=== PATIENT | female | born 1955 | race Caucasian/White ===

== ENCOUNTER 2017-11-02 19:18 | Inpatient (IN) | payer BC, OTHER ==
[~2017-11-02] VITALS: Ht 142.2 cm; Wt 81.6 kg
[~2017-11-02 19:18] MED LIST: ASPIR 8181 MG PO; ATENOLOL50 MG PO; LEVEMIR100 UNIT/1 SC; LEVOFLOXACIN500 MG PO; LIPITOR10 MG PO; LISINOPRIL10 MG PO; METFORMIN HCL500 M1 PO; NOVOLOG100 UNITS1 SC; PLAVIX75 MG PO; PREDNISONE20 MG PO; VENTOLIN HFA18 GM PO
--- OUTSIDE RECORDS SUMMARY | 2017-11-02 19:20 | XMS REPORT ---
Author Author [facility] Address Unknown Phone Unavailable Care Team Providers Care Appraiser Name Role Phone Unavailable Unavailable Problems This patient has no known problems. Allergies, Adverse Reactions, Alerts This patient has no known allergies or adverse reactions. Medications This patient has no known medications. Encounters Start Date/Time End Date/Time Encounter Type Admission Type Attending [facility] Facility Care Department Encounter ID 2017-02-18 00:00:00 2017-02-18 00:00:00 Outpatient [facility] [id number] 2017-01-26 00:00:00 2017-01-26 00:00:00 Outpatient [facility] [id number] 2017-01-14 00:00:00 2017-01-14 00:00:00 Outpatient [facility] [id number] 2017-01-01 00:00:00 2017-01-01 00:00:00 Outpatient [facility] [id number] 2016-12-24 00:00:00 2016-12-24 00:00:00 Outpatient [facility] [id number] 2016-12-15 00:00:00 2016-12-15 00:00:00 Outpatient [facility] [id number] 2016-12-05 15:07:46 2016-12-05 15:07:46 Outpatient [facility] [id number] 2016-10-29 14:44:37 2016-10-29 14:44:37 Outpatient [facility] [id number] 2016-10-28 10:08:32 2016-10-28 10:08:32 Outpatient [facility] [id number]
[2017-11-02] MEDS ORDERED: HYDRALAZINE HCL 20 MG/ML VIAL IV STA (19:27)
[2017-11-02] MEDS ORDERED: ASPIRIN 81 MG CHEW TAB PO ONE ×2 (19:30→21:00)
[2017-11-02] MEDS ORDERED: CLONIDINE HCL 0.1 MG TAB PO ONE (20:00)
[2017-11-02 20:23] LABS: CLARITY,URINE SL CLOUDY (CLEAR); COLOR,URINE YELLOW (YELLOW); LEUKOCYTE ESTERASE ,URINE NEGATIVE (NEGATIVE); NITRITE,URINE NEGATIVE (NEGATIVE); PROTEIN,URINE DIPSTICK 2+ (NEGATIVE)
[2017-11-02 20:24] LABS: BACTERIA,URINE MANY /HPF; BILIRUBIN,URINE NEGATIVE (NEGATIVE); EPITHELIAL CELLS,URINE MANY /LPF; INR 1.11; KETONES,URINE NEGATIVE (NEGATIVE); PARTIAL THROMBOPLASTIN TIME 29.7 seconds (23.8-35.5); PROTHROMBIN TIME 13.5 seconds (11.9-14.5); URINE UROBILINOGEN 1 mg/dL (0.2 - 1)
[2017-11-02 20:25] LABS: HEMATOCRIT 36.7 % (34.2-44.1); HEMOGLOBIN 11.4 g/dL (12.0-16.0); MEAN CORPUSCULAR HEMOGLOBIN 28.1 pg (28-32); MEAN CORPUSCULAR HGB CONC 31.1 g/dL (31-35); MEAN CORPUSCULAR VOLUME 90.6 fL (81-99); RED BLOOD COUNT 4.05 x10e6/uL (3.6-5.1); RED CELL DISTRIBUTION WIDTH 13.5 % (11.7-14.4)
[2017-11-02 20:26] LABS: BASOPHILS # (AUTO) 0.4 (0.0-0.1); EOSINOPHILS # (AUTO) 3.6 (0.0-0.4); EOSINOPHILS % 0.4 % (0.0-6.0); LYMPHOCYTES # (AUTO) 20.5 (1.0-3.2); LYMPHOCYTES % 2.3 % (18.0-39.1); MONOCYTES % 0.8 % (4.4-11.3); NEUTROPHILS % 7.7 % (38.7-80.0); PLATELET COUNT 290 x10e3/uL (140-360)
[2017-11-02 20:28] LABS: ANION GAP 11.6 mmol/L (8-16); CALCIUM 8.8 mg/dL (8.4-10.2); CREATININE, SERUM 1.22 mg/dL (0.57-1.11); POTASSIUM 4.6 mmol/L (3.5-5.1)
[2017-11-02 20:29] LABS: ALBUMIN 3.2 g/dL (3.5-5.0); ALBUMIN/GLOBULIN RATIO 0.7 (0.8-2.0); CREATINE KINASE MB 4.6 ng/mL (0-5.0); MAGNESIUM 1.8 MG/DL (1.3-2.1)
--- NOTE | 2017-11-02 20:38 | Diagnostic Imaging Report ---
A single frontal view of the chest. HISTORY: Chest pain, shortness of breath COMPARISON: None available. DISCUSSION: Portable technique, limits sensitivity of the exam. Soft tissue attenuation partially limits sensitivity of the exam. Overlying monitoring leads. Tubes/Lines: None Lungs and pleura: Low lung volumes result in bibasilar vascular crowding, accentuation of the pulmonary interstitial markings, central pulmonary vasculature, and the cardiac silhouette. Allowing for these limitations, the findings are as follows: Diffusely increased interstitial opacities with more confluent opacities at the lung bases. Small pleural effusions with adjacent atelectasis. Heart and mediastinum: The cardiac silhouette and central pulmonary vasculature appears prominent. Bones: No acute osseous lesion is identified, given this limited exam. IMPRESSION: Correlate for volume overload, findings compatible with mild cardiomegaly, central pulmonary vascular congestion, interstitial edema, small bilateral pleural effusions with adjacent atelectasis. Signed by: Dr. Fawad Ruiz D.O., M.M.M. on 11/02/2017 8:34 PM
[2017-11-02] MEDS ORDERED: SODIUM CHLORIDE FLUSH 10 ML SYR INJ PRN (21:00)
[2017-11-02] MEDS ORDERED: FUROSEMIDE INJ 10 MG/ML 4 ML VIAL IV ONE (21:00)
[2017-11-02] MEDS: FUROSEMIDE INJ 10 MG/ML 4 ML VIAL IV SCH (21:22)
[2017-11-03] MEDS ORDERED: NITROGLYCERIN 2% OINT 1 GM PKT TOP SCH
[2017-11-03] MEDS ORDERED: METOPROLOL TARTRATE INJ 1 MG/ML VIAL IV ONE (02:30)
[2017-11-03 05:21] LABS: BASOPHILS # (AUTO) 0.1 (0.0-0.1); BASOPHILS % 0.5 % (0.0-1.0); EOSINOPHILS # (AUTO) 0.3 (0.0-0.4); EOSINOPHILS % 3.5 % (0.0-6.0); HEMATOCRIT 32.5 % (34.2-44.1); LYMPHOCYTES # (AUTO) 2.3 (1.0-3.2); LYMPHOCYTES % 23.5 % (18.0-39.1); MEAN CORPUSCULAR HEMOGLOBIN 27.5 pg (28-32); MEAN CORPUSCULAR HGB CONC 30.8 g/dL (31-35); MEAN CORPUSCULAR VOLUME 89.5 fL (81-99); MONOCYTES # (AUTO) 0.8 (0.2-0.8); MONOCYTES % 7.7 % (4.4-11.3); NEUTROPHILS # (AUTO) 6.3 (2.1-6.9); NEUTROPHILS % 64.5 % (38.7-80.0); PLATELET COUNT 258 x10e3/uL (140-360); RED BLOOD COUNT 3.63 x10e6/uL (3.6-5.1); RED CELL DISTRIBUTION WIDTH 13.6 % (11.7-14.4)
[2017-11-03 05:42] LABS: ALBUMIN 2.7 g/dL (3.5-5.0); ALBUMIN/GLOBULIN RATIO 0.8 (0.8-2.0); ANION GAP 12.2 mmol/L (8-16); CALCIUM 8.5 mg/dL (8.4-10.2); CREATININE, SERUM 1.17 mg/dL (0.57-1.11); POTASSIUM 4.2 mmol/L (3.5-5.1)
[2017-11-03 05:59] LABS: CREATINE KINASE MB 2.6 ng/mL (0-5.0)
[2017-11-03] MEDS ORDERED: DEXTROSE 50% SYRINGE 50 ML IV PRN (07:30)
[2017-11-03] MEDS ORDERED: INSULIN LISPRO 100 UNIT/1 ML 3ML VIAL SQ SCH (07:30)
[2017-11-03] MEDS: ASPIRIN 81 MG ENTERIC COATED PO SCH (08:55)
[2017-11-03] MEDS: FUROSEMIDE INJ 10 MG/ML 4 ML VIAL IV SCH ×2 (08:55→20:55)
[2017-11-03] MEDS: INSULIN REGULAR, HUMAN 100 UNIT/1 ML 3ML VIAL SQ SCH ×2 (12:33→21:00)
[2017-11-03 13:11] LABS: CREATINE KINASE MB 2.2 ng/mL (0-5.0)
[2017-11-03] MEDS ORDERED: CARVEDILOL 12.5 MG TAB PO SCH (17:00)
--- NOTE | 2017-11-03 17:21 | Consultation ---
DATE OF CONSULTATION: November 03, 2017 CARDIOLOGY CONSULTATION REQUESTING PHYSICIAN: Dr. Mosley REASON FOR CONSULTATION: Chest pain and hypertensive urgency. HISTORY OF PRESENT ILLNESS: This is a 62-year-old woman with a history of coronary artery disease, status post LAD PCI 3 years ago, diabetes mellitus and hypertension, who presents with complaints of shortness of breath and chest pain. The patient reports she has been out of her blood pressure medication for the last couple of weeks. One week prior to admission, she noted her blood pressure has been running high. Additionally, she reports she has been having shortness of breath for the last 2 weeks as well as lower extremity edema and orthopnea. She denied any PND, lightheadedness, syncope or palpitations. The night prior to admission she endorsed sharp chest pain, 5/10 in severity. There was no radiation. It was only intermittently present. REVIEW OF SYSTEMS: Negative, except as per HPI. PAST MEDICAL HISTORY 1. Coronary artery disease, status post LAD PCI in 2014. 2. Diabetes mellitus. 3. Hypertension. PAST SURGICAL HISTORY: Tonsillectomy. ALLERGIES: PENICILLIN. MEDICATIONS: Please see medication list. SOCIAL HISTORY: Denies tobacco, alcohol, or illicit drugs. FAMILY HISTORY: Noncontributory. PHYSICAL EXAMINATION VITAL SIGNS: Temperature 99.5 degrees, pulse 77, respiratory rate 18, blood pressure 145/75, oxygen saturation 99%. GENERAL: Obese woman in no acute distress. HEENT: Normocephalic and atraumatic. Pupils are equal. No scleral icterus. NECK: Supple. No thyromegaly or cervical lymphadenopathy. No carotid bruit. LUNGS: Crackles in bilateral bases. Otherwise, clear to auscultation. CARDIOVASCULAR: Normal rate, regular rhythm. No murmur. Normal S1 and S2. ABDOMEN: Soft. Nontender. EXTREMITIES: There is 1+ pitting edema bilaterally. NEURO: Nonfocal exam. LABS: WBC 9.8, hemoglobin 10, hematocrit 32.5, platelets 258. Sodium 143, potassium 4.2, chloride 108, CO2 27, BUN 26, creatinine 1.17. Troponin initial 0.502. BNP 794. UA shows 2+ protein, 2+ glucose, 2+ blood, 11-20 RBCs, 6-10 WBCs, many bacteria. Chest x-ray: Correlate for volume overload. Findings compatible with mild cardiomegaly, central pulmonary vascular congestion, interstitial edema, small bilateral pleural effusions with atelectasis. EKG: Sinus tachycardia. ST and T wave abnormalities. Consider inferolateral ischemia. IMPRESSION 1. Lxzlo-vy-ionenyu diastolic heart failure. 2. Hypertensive emergency. 3. Elevated troponin. 4. Coronary artery disease with prior left anterior descending percutaneous coronary intervention in 2014. 5. Diabetes mellitus. 6. Hypertension. RECOMMENDATIONS 1. Cardiac enzymes are downtrending. Cardiac biomarkers are not consistent with uam-GV-nrkuzvqzz myocardial infarction, most likely related to demand ischemia in the setting of xblue-xu-skwydlv diastolic heart failure versus hypertensive emergency. 2. Continue diuretics. Blood pressure has improved. Will start the patient on carvedilol for blood pressure control. Given known CAD and elevated troponin, the patient needs ischemic evaluation. Plan to schedule for cardiac catheterization tomorrow morning, n.p.o. after midnight except for medications. Thank you for this consult. We will continue to follow. Job#: [id number]
[2017-11-03 17:33] VITALS: BP 205/95
[2017-11-03 17:46] VITALS: BP 205/95
[2017-11-03 17:53] VITALS: BP 205/95
[2017-11-03 18:18] VITALS: BP 140/64
[2017-11-03 18:19] VITALS: BP 140/64
[2017-11-03] MEDS: LEVOFLOXACIN 500MG/D5W 100ML 100 ML IV SCH (18:30)
[2017-11-03] MEDS ORDERED: SODIUM CHLORIDE 0.9% 250ML 250 ML ONE (18:35)
[2017-11-03 18:53] LABS: CHOL/HDL RATIO 5.1 (3.0-3.6)
[2017-11-03 20:00] VITALS: BP 178/78
[2017-11-03] MEDS: ATORVASTATIN 20 MG TAB PO SCH (20:55)
[2017-11-03] MEDS ORDERED: PRAVASTATIN 20 MG TAB PO SCH (21:00)
[2017-11-03] MEDS: HEPARIN SOD (PORCINE) 5,000 UNIT/ML VIAL SC SCH (21:00)
--- NOTE | 2017-11-03 23:32 | History and Physical ---
PRIMARY CARE PHYSICIAN: None. CHIEF COMPLAINT: Shortness of breath and chest discomfort. HISTORY OF PRESENT ILLNESS: This is a 62-year-old woman with a history of coronary artery disease, status post stents in 2014, and history of asthma, now developing shortness of breath about 2 weeks ago, started using inhaler, but then developed leg swelling. Symptoms worsened overtime, increasing to the point where she was having increased shortness of breath and leg swelling. She also had associated cough and came to the hospital for further evaluation and management. PAST MEDICAL HISTORY: Coronary artery disease, status post stent in 2015, asthma, hypertension, diabetes mellitus type 2. PAST SURGICAL HISTORY: Tonsillectomy and coronary stent placement. ALLERGIES: PER ELECTRONIC MEDICAL RECORD. FAMILY AND SOCIAL HISTORY: Patient is . She has no children. No alcohol, illicit or cigarettes. MEDICATIONS: Per electronic medical record. REVIEW OF SYSTEMS: Denies any dizziness, fever, chills or sweats. PHYSICAL EXAMINATION: VITAL SIGNS: Have been reviewed. Blood pressure is as high as 247/116. GENERAL: A tired-appearing woman, resting in bed. HEENT: Anicteric. Pupils responsive to light. No oral lesions. CARDIOVASCULAR: Normal S1 and S2. LUNGS: Moderate breath sounds, reduced at the bases. ABDOMEN: Soft, nontender, nondistended. EXTREMITIES: 2+ leg edema bilaterally. SKIN: Dry. PSYCHIATRIC: Normal affect. LABS: Reviewed. MEDICATIONS: Reviewed. ASSESSMENT: A 62-year-old woman. 1. Abnormal electrocardiogram. 2. Pericardial effusion. 3. Elevated troponin. 4. Hypertension. 5. Coronary artery disease with history of stents. 6. Hypertensive emergency with leg edema and shortness of breath. 7. Acute kidney injury. 8. Morbid obesity. Body mass index is 40.4. 9. Acute exacerbation of congestive heart failure, possibly diastolic. 10. Urinary tract infection. 11. Pleural effusion, bilateral. 12. Diabetes mellitus type 2. PLAN: 1. Heart catheterization planned for tomorrow. 2. Continue aggressive diuresis, 40 IV of Lasix q.12. 3. Continue beta marianne with carvedilol and add aspirin. I will discontinue atenolol while patient is on carvedilol. 4. We will treat the urinary tract infection with IV Levaquin as patient is allergic to penicillin and follow up urine cultures. 5. We will hold Plavix in anticipation of heart catheterization tomorrow. 6. Use Dilaudid, aspirin and statin. 7. Obtain lipid panel and hemoglobin A1c. 8. We will start pravastatin 20 mg at bedtime. May need to titrate up after we get the results. 9. N.p.o. after midnight in anticipation for heart catheterization. 10. Use heparin and Pepcid for prophylaxis. DISPOSITION: Follow up heart catheterization. Blood pressure control and diurese patient. Follow I's and O's. Job#: [id number]
[2017-11-04] VITALS (29 sets, daily range): BP systolic 108–193; BP diastolic 58–98
[2017-11-04] MEDS: HYDRALAZINE HCL 20 MG/ML VIAL IV PRN (00:18)
[2017-11-04 06:41] LABS: HEMATOCRIT 34.2 % (34.2-44.1); HEMOGLOBIN 10.7 g/dL (12.0-16.0); MEAN CORPUSCULAR HEMOGLOBIN 28.2 pg (28-32); MEAN CORPUSCULAR HGB CONC 31.3 g/dL (31-35); MEAN CORPUSCULAR VOLUME 90.2 fL (81-99); PLATELET COUNT 231 x10e3/uL (140-360); RED BLOOD COUNT 3.79 x10e6/uL (3.6-5.1); RED CELL DISTRIBUTION WIDTH 13.7 % (11.7-14.4)
[2017-11-04 06:42] LABS: BASOPHILS # (AUTO) 0.1 (0.0-0.1); BASOPHILS % 0.4 % (0.0-1.0); EOSINOPHILS # (AUTO) 0.4 (0.0-0.4); EOSINOPHILS % 3.3 % (0.0-6.0); LYMPHOCYTES # (AUTO) 1.5 (1.0-3.2); LYMPHOCYTES % 12.8 % (18.0-39.1); MONOCYTES # (AUTO) 0.8 (0.2-0.8); MONOCYTES % 6.8 % (4.4-11.3); NEUTROPHILS # (AUTO) 8.9 (2.1-6.9); NEUTROPHILS % 76.4 % (38.7-80.0)
[2017-11-04 07:04] LABS: ANION GAP 14.6 mmol/L (8-16); BLOOD UREA NITROGEN 32 mg/dL (7-26); BUN/CREATININE RATIO 25 (6-25); CALCIUM 8.9 mg/dL (8.4-10.2); CARBON DIOXIDE 26 mmol/L (22-29); CHLORIDE 106 mmol/L (98-107); EST GLOMERULAR FILTRATION RATE > 60 ML/MIN (60-); FREE T4 (FREE THYROXINE) 1.29 ng/dL (0.9-1.8); GLUCOSE 139 mg/dL (74-118); MAGNESIUM 1.6 MG/DL (1.3-2.1); POTASSIUM 4.6 mmol/L (3.5-5.1); SODIUM 142 mmol/L (136-145); THYROID STIMULATING HORMONE 2.768 uIU/mL (0.350-4.940)
[2017-11-04] MEDS: FAMOTIDINE 20 MG TAB PO SCH ×3 (07:30→18:45)
[2017-11-04] MEDS: INSULIN REGULAR, HUMAN 100 UNIT/1 ML 3ML VIAL SQ SCH ×4 (07:30→21:00)
[2017-11-04 07:32] LABS: CREATINE KINASE 45 IU/L (29-168)
[2017-11-04] MEDS ORDERED: ASPIRIN 81 MG CHEW TAB PO SCH (09:00)
[2017-11-04] MEDS ORDERED: CLOPIDOGREL BISULFATE 75 MG TAB PO SCH (09:00)
[2017-11-04] MEDS: HEPARIN SOD (PORCINE) 5,000 UNIT/ML VIAL SC SCH ×2 (09:00→21:00)
[2017-11-04] MEDS: ASPIRIN 81 MG ENTERIC COATED PO SCH (09:00)
[2017-11-04] MEDS: INSULIN DETEMIR 100 UNIT/ML PEN SQ SCH ×2 (09:00→17:00)
[2017-11-04] MEDS ORDERED: INSULIN DETEMIR 32 UNIT SC SCH (09:00)
[2017-11-04] MEDS: FUROSEMIDE INJ 10 MG/ML 4 ML VIAL IV SCH ×2 (09:00→21:00)
[2017-11-04] MEDS ORDERED: ATENOLOL 50 MG TAB PO SCH (09:00)
[2017-11-04] MEDS ORDERED: ATORVASTATIN 10 MG TAB PO SCH (09:00)
--- NOTE | 2017-11-04 10:18 | Progress Note ---
DATE: November 04, 2017 CARDIOLOGY PROGRESS NOTE SUBJECTIVE: Patient denies chest pain or shortness of breath. She is n.p.o. for cardiac catheterization today. OBJECTIVE VITALS: Temperature 97.4 degrees, pulse 97, respiratory rate 19, blood pressure 149/65, oxygen saturation 96% on room air. GENERAL: Awake, alert and in no acute distress. Obese. LUNGS: Clear to auscultation bilaterally. No wheezes or crackles. CARDIOVASCULAR: Normal rate and regular rhythm. No murmur. Normal S1 and S2. ABDOMEN: Soft and nontender. EXTREMITIES: One plus pitting edema bilaterally. CARDIAC MEDICATIONS 1. Furosemide 40 mg IV q.12 h. 2. Aspirin 81 mg p.o. q.a.m. 3. Atorvastatin 20 mg p.o. at bedtime. 4. Carvedilol 6.25 mg p.o. b.i.d. LABS: WBC 11.59, hemoglobin 10.7, hematocrit 34.2, and platelets 231,000. Sodium 142, potassium 4.6, chloride 106, CO2 26, BUN 32, creatinine 1.3. BNP 287. Troponin 0.279. Telemetry is normal sinus rhythm. IMPRESSION 1. Ozmbq-cb-zimvmgc diastolic heart failure. 2. Hypertensive emergency. 3. Elevated troponin. 4. Coronary artery disease with prior left anterior descending percutaneous coronary intervention in 2014. 5. Diabetes mellitus. 6. Hypertension. RECOMMENDATIONS: Patient is likely approaching euvolemic. Monitor creatinine closely. Continue current cardiac medications. We will proceed with cardiac catheterization today to evaluate for ischemia given the patient's elevated troponin and known history of LAD PCI. Further recommendations to follow. Thank you for this consult. We will continue to follow. Job#: [id number] [place]
[2017-11-04] MEDS ORDERED: SODIUM CHLORIDE 0.9% 1000ML 1,000 ML ONE ×2 (11:02→17:33)
[2017-11-04] MEDS ORDERED: HEPARIN SOD/SOD CHLORIDE 2,000 ML ONE (11:02)
[2017-11-04] MEDS ORDERED: LIDOCAINE HCL 2% LOCAL 20 ML VIAL ONE (11:02)
[2017-11-04] MEDS ORDERED: IOPAMIDOL 370 MG/ML 200 ML INFUS..BTL INJ ONE (11:02)
[2017-11-04] MEDS ORDERED: MIDAZOLAM HCL 2 MG/2 ML VIAL ONE ×2 (11:09→12:56)
[2017-11-04] MEDS ORDERED: FENTANYL CITRATE/PF 100MCG/2 ML INJ ONE (11:09)
[2017-11-04] MEDS ORDERED: HYDRALAZINE HCL 20 MG/ML VIAL ONE (13:01)
[2017-11-04] MEDS ORDERED: HEPARIN SOD (PORCINE) 1000 UNIT/ML 30ML ONE (13:23)
[2017-11-04] MEDS ORDERED: ASPIRIN 325 MG TAB ONE (13:26)
[2017-11-04] MEDS ORDERED: PRASUGREL 10 MG TAB ONE (13:26)
[2017-11-04] MEDS ORDERED: NITROGLYCERIN/D5W 200 MCG/ML 250 ML ONE (13:27)
[2017-11-04] MEDS ORDERED: ONDANSETRON HCL INJ 2 MG/ML VIAL ONE (15:29)
--- NOTE | 2017-11-04 16:17 | Operative Report ---
DATE OF PROCEDURE: November 04, 2017 INDICATIONS: Coronary artery disease and non ST segment elevation myocardial infarction. PROCEDURES PERFORMED: 1. Left heart catheterization, selective coronary angiography (performed by Dr. Saira Harden). 2. Percutaneous transluminal coronary angioplasty and drug-eluting stent placed from the proximal and mid right coronary artery (performed by Dr. Reno Sierra). BLOOD LOSS: 20 mL. RECOMMENDATIONS: Dual antiplatelet therapy for at least 1 year. COMPLICATIONS: None. Access was obtained in the right femoral artery. A 6-British sheath was placed. Diagnostic coronary angiogram revealed patent left main. Left anterior descending stents were widely patent with excellent flow. Distal circumflex artery had a 99% subtotal occlusion, PARK-1 flow. This was a 1.5 mm vessel, was not deemed large enough for intervention. The right coronary artery had a proximal 80%, mid 30% stenosis. LV end-diastolic pressure of 24. No gradient across the aortic valve on pullback. A decision was made to intervene on the right coronary artery. The patient received 8000 units of intravenous heparin with an ACT of 245. Oral Effient was also administered for anticoagulation. The right coronary artery was cannulated using a JR4, 6-British guiding catheter. A short Runthrough wire was advanced across the lesion for support. A primary stent with a 2.75 x 32 mm [employer] Synergy was performed at 20 atmospheres. Postdilatation of the mid and proximal sections of the stent with a 3.5 mm noncompliant balloon with excellent end result, less than 10% residual stenosis, PARK-3 flow. No complications. Sheath was secured in place, removed under manual pressure. Patient transferred to the floor in stable condition. Job#: [id number] EV
[2017-11-04] MEDS: CARVEDILOL 12.5 MG TAB PO SCH ×2 (17:00→18:45)
[2017-11-04] MEDS: LEVOFLOXACIN 500MG/D5W 100ML 100 ML IV SCH (18:45)
[2017-11-04] MEDS: ATORVASTATIN 20 MG TAB PO SCH (21:00)
[2017-11-05] VITALS (7 sets, daily range): BP systolic 103–139; BP diastolic 53–65
[2017-11-05 03:38] LABS: BASOPHILS % 0.3 % (0.0-1.0); EOSINOPHILS # (AUTO) 0.1 (0.0-0.4); EOSINOPHILS % 0.6 % (0.0-6.0); HEMATOCRIT 31.1 % (34.2-44.1); HEMOGLOBIN 9.8 g/dL (12.0-16.0); LYMPHOCYTES # (AUTO) 1.7 (1.0-3.2); LYMPHOCYTES % 15.6 % (18.0-39.1); MEAN CORPUSCULAR HEMOGLOBIN 28.3 pg (28-32); MEAN CORPUSCULAR HGB CONC 31.5 g/dL (31-35); MEAN CORPUSCULAR VOLUME 89.9 fL (81-99); MONOCYTES # (AUTO) 0.9 (0.2-0.8); MONOCYTES % 8.2 % (4.4-11.3); NEUTROPHILS # (AUTO) 8.1 (2.1-6.9); NEUTROPHILS % 74.9 % (38.7-80.0); PLATELET COUNT 274 x10e3/uL (140-360); RED BLOOD COUNT 3.46 x10e6/uL (3.6-5.1); RED CELL DISTRIBUTION WIDTH 13.6 % (11.7-14.4)
[2017-11-05 03:52] LABS: ANION GAP 13.6 mmol/L (8-16); CALCIUM 8.3 mg/dL (8.4-10.2); CREATININE, SERUM 1.8 mg/dL (0.57-1.11); MAGNESIUM 1.3 MG/DL (1.3-2.1); POTASSIUM 4.6 mmol/L (3.5-5.1)
[2017-11-05] MEDS: INSULIN REGULAR, HUMAN 100 UNIT/1 ML 3ML VIAL SQ SCH ×4 (08:00→21:20)
[2017-11-05] MEDS: ASPIRIN 81 MG ENTERIC COATED PO SCH (08:00)
[2017-11-05] MEDS: FAMOTIDINE 20 MG TAB PO SCH ×2 (08:00→16:45)
[2017-11-05] MEDS: FUROSEMIDE INJ 10 MG/ML 4 ML VIAL IV SCH ×2 (08:00→21:20)
[2017-11-05] MEDS: CARVEDILOL 12.5 MG TAB PO SCH ×2 (08:00→16:44)
[2017-11-05] MEDS: INSULIN DETEMIR 100 UNIT/ML PEN SQ SCH ×2 (08:00→16:45)
[2017-11-05] MEDS: HEPARIN SOD (PORCINE) 5,000 UNIT/ML VIAL SC SCH ×2 (08:15→21:20)
[2017-11-05] MEDS ORDERED: SODIUM CHLORIDE 0.9% 1000ML 1,000 ML IV SCH (09:45)
[2017-11-05] MEDS ORDERED: ACETAMINOPHEN 325 MG TAB PO PRN (09:45)
[2017-11-05] MEDS ORDERED: CLOPIDOGREL BISULFATE 75 MG TAB PO ONE (10:15)
--- NOTE | 2017-11-05 10:59 | Progress Note ---
DATE: November 05, 2017 CARDIOLOGY PROGRESS NOTE SUBJECTIVE: Patient denies chest pain or shortness of breath. OBJECTIVE VITALS: Temperature 98.6 degrees, pulse 91, respiratory rate 16, blood pressure 139/62, oxygen saturation 95% on room air. GENERAL: Obese woman in no acute distress. Awake and alert. LUNGS: Clear to auscultation bilaterally. No wheezes or crackles. CARDIOVASCULAR: Normal rate and regular rhythm. No murmur. Normal S1 and S2. ABDOMEN: Soft and nontender. EXTREMITIES: No edema. CARDIAC MEDICATIONS 1. Carvedilol 12.5 mg p.o. b.i.d. 2. Furosemide 40 mg IV q.12 h. 3. Aspirin 81 mg p.o. q.a.m. 4. Atorvastatin 20 mg p.o. at bedtime. 5. Plavix 75 mg p.o. daily. LABS: WBC 10.84, hemoglobin 9.8, hematocrit 31.1, platelets 274. Sodium 134, potassium 4.6, chloride 101, CO2 24, BUN 33, creatinine 1.8. BNP 432. TELEMETRY: Normal sinus rhythm. IMPRESSION 1. Tishb-ay-quguciz diastolic heart failure. 2. Uyy-VW-qyitialow myocardial infarction. 3. Hypertensive emergency. 4. Coronary artery disease with prior left anterior descending percutaneous coronary intervention in 2014. 5. Diabetes mellitus. 6. Hypertension, poorly controlled. RECOMMENDATIONS: Patient is status post PCI of the RCA. The patient was instructed on the importance of dual antiplatelet therapy for a minimum of 1 year. Titrate up carvedilol given her hypertension. Continue current cardiac medications otherwise. Monitor creatinine closely. She would likely benefit from further diuresis given her rising BNP. She would also benefit from initiation of MRAIE/ARB, given her diabetes mellitus. Plan to initiate once her renal function is stable, likely as an outpatient. Thank you for this consult. We will continue to follow. Job#: [id number]
[2017-11-05] MEDS: ONDANSETRON HCL INJ 2 MG/ML VIAL IV PRN (11:00)
[2017-11-05 15:41] LABS: ANION GAP 10.4 mmol/L (8-16); CREATININE, SERUM 2.02 mg/dL (0.57-1.11); POTASSIUM 4.4 mmol/L (3.5-5.1)
[2017-11-05] MEDS: OYST-CAL-D 500MG TABLET PO SCH (16:44)
[2017-11-05] MEDS: LEVOFLOXACIN 500MG/D5W 100ML 100 ML IV SCH (17:52)
[2017-11-05] MEDS: ATORVASTATIN 20 MG TAB PO SCH (21:20)
[2017-11-06 00:28] VITALS: BP 149/67
[2017-11-06 04:00] VITALS: BP 170/74
[2017-11-06] MEDS: HYDRALAZINE HCL 20 MG/ML VIAL IV PRN (05:29)
[2017-11-06 06:29] LABS: BASOPHILS # (AUTO) 0.1 (0.0-0.1); BASOPHILS % 0.6 % (0.0-1.0); EOSINOPHILS # (AUTO) 0.2 (0.0-0.4); EOSINOPHILS % 2.4 % (0.0-6.0); HEMATOCRIT 30.6 % (34.2-44.1); HEMOGLOBIN 9.5 g/dL (12.0-16.0); LYMPHOCYTES # (AUTO) 2.3 (1.0-3.2); LYMPHOCYTES % 25.4 % (18.0-39.1); MEAN CORPUSCULAR HEMOGLOBIN 28.1 pg (28-32); MEAN CORPUSCULAR VOLUME 90.5 fL (81-99); MONOCYTES # (AUTO) 0.9 (0.2-0.8); MONOCYTES % 10.3 % (4.4-11.3); NEUTROPHILS # (AUTO) 5.5 (2.1-6.9); NEUTROPHILS % 60.9 % (38.7-80.0); PLATELET COUNT 234 x10e3/uL (140-360); RED BLOOD COUNT 3.38 x10e6/uL (3.6-5.1); RED CELL DISTRIBUTION WIDTH 13.4 % (11.7-14.4)
[2017-11-06 06:52] LABS: ANION GAP 11.1 mmol/L (8-16); CALCIUM 8.5 mg/dL (8.4-10.2); CREATININE, SERUM 2.24 mg/dL (0.57-1.11); MAGNESIUM 1.5 MG/DL (1.3-2.1); POTASSIUM 4.1 mmol/L (3.5-5.1)
[2017-11-06] MEDS: INSULIN REGULAR, HUMAN 100 UNIT/1 ML 3ML VIAL SQ SCH (08:00)
[2017-11-06] MEDS: ONDANSETRON HCL INJ 2 MG/ML VIAL IV PRN (08:10)
[2017-11-06 08:25] VITALS: BP 149/69
[2017-11-06] MEDS: ASPIRIN 81 MG ENTERIC COATED PO SCH (08:26)
[2017-11-06] MEDS: FAMOTIDINE 20 MG TAB PO SCH (08:26)
[2017-11-06] MEDS: INSULIN DETEMIR 100 UNIT/ML PEN SQ SCH (08:27)
[2017-11-06] MEDS: CARVEDILOL 12.5 MG TAB PO SCH (08:27)
[2017-11-06] MEDS: OYST-CAL-D 500MG TABLET PO SCH (08:27)
[2017-11-06] MEDS ORDERED: NORVASC10 MG PO (08:57)
[2017-11-06] MEDS ORDERED: POTASSIUM CHLO10 ME1 PO (08:57)
[2017-11-06] MEDS ORDERED: PLAVIX75 MG PO (08:57)
[2017-11-06] MEDS ORDERED: COREG12.5 MG PO (08:57)
[2017-11-06] MEDS ORDERED: Calcium Carbonate PO (08:57)
[2017-11-06] MEDS ORDERED: LASIX20 MG PO (08:57)
[2017-11-06] MEDS ORDERED: AMLODIPINE BESYLATE 10 MG TAB PO SCH (09:00)
[2017-11-06] MEDS ORDERED: CLOPIDOGREL BISULFATE 75 MG TAB PO SCH (09:00)
[2017-11-06 09:09] VITALS: BP 149/69
--- NOTE | 2017-11-06 17:31 | Discharge Summary ---
ADMISSION DIAGNOSES 1. Abnormal electrocardiogram. 2. Pericardial effusion. 3. Elevated troponin. 4. Hypertension. 5. Coronary artery disease with history of stent. 6. Hypertensive emergency with leg edema and shortness of breath. 7. Acute kidney injury. 8. Morbid obesity. 9. Acute exacerbation of congestive heart failure. 10. Urinary tract infection. 11. Pleural effusion bilaterally. 12. Type 2 diabetes. DISCHARGE DIAGNOSES 1. Abnormal electrocardiogram. 2. Pericardial effusion. 3. Elevated troponin. 4. Hypertension. 5. Coronary artery disease with history of stent. 6. Hypertensive emergency with leg edema and shortness of breath. 7. Acute kidney injury. 8. Morbid obesity. 9. Acute exacerbation of congestive heart failure. 10. Urinary tract infection. 11. Pleural effusion bilaterally. 12. Type 2 diabetes. HISTORY: Patient has a history of CAD, status post stent in 2014, asthma, hypertension, type 2 diabetes. Surgical history of tonsillectomy and coronary stent placement. HOSPITAL COURSE: A 62-year-old female with a history of CAD, asthma, now developing shortness of breath about 2 weeks ago. Started using inhaler, but then developed leg swelling. Symptoms worsened over time increasing to the point where she was having increased shortness of breath and leg swelling. She also had an associated cough, and came to the hospital. Upon admission, the patient was diuresed with Lasix 40 mg q.12 h. Cardiology was consulted for a heart cath. Her troponin on admission was 0.52. She was started on Levaquin for UTI. Plavix was held in anticipation of the heart cath. She was started on her Coreg, beta marianne and aspirin. Also, Pravastatin 20 mg at bedtime. Chest x-ray on admission shows no acute osseous lesions. Correlate with volume overload. Findings compatible with mild pulmonary congestion, interstitial edema and small bilateral pleural effusions with adjacent atelectasis. Urine culture came back contaminated. On admission, her WBC was 11.31. The patient was afebrile. The patient received 2 days of IV antibiotics for UTI. She was taken to the label machine operator on November 04, 2017, and had a PCI of the RCA. The patient was instructed on the importance of dual platelet therapy for a minimum of 1 year. Her renal function declined after cath. Her Lasix was lowered to try to help her kidney function. On the day of discharge, sodium is 135, potassium 4.1, BUN 43, creatinine 2.2, GFR of 22. BNP of 210. WBC of 9.06, hemoglobin 9.5, hematocrit 30.5, and platelets of 235,000. The patient is afebrile and vital signs stable. Per cardiology rec, the patient was sent with Plavix, aspirin, Coreg, decreased dose of Lasix, potassium, as well as calcium carbonate for her hypercalcemia. The patient understands the discharge instructions, and will follow up with primary care in 1-2 weeks and cardiology as needed. DICTATED BY SUNDAY OLMOS NP HEIDY NO MD Job#: [id number] [place]
== END 2017-11-06 12:32 | disposition home or self-care (01) | DRG 246 ==
LOC: ER 19:18 → ERHOLD 21:38 → MED/SURG2 11-03 16:55
PROVIDERS: ADMIT Internal Medicine; ATTEND Internal Medicine
PROC: 4A023N7 Measurement of Cardiac Sampling and Pressure, Left Heart, Percutaneous Approach (ICD-10-PCS; principal; 2017-11-02)
PROC: 027034Z Dilation of Coronary Artery, One Artery with Drug-eluting Intraluminal Device, Percutaneous Approach (ICD-10-PCS; 2017-11-02)
PROC: B2111ZZ Fluoroscopy of Multiple Coronary Arteries using Low Osmolar Contrast (ICD-10-PCS; 2017-11-02)
PROC: B2151ZZ Fluoroscopy of Left Heart using Low Osmolar Contrast (ICD-10-PCS; 2017-11-02)
DX: I21.A1 Myocardial infarction type 2 (principal); I50.33 Acute on chronic diastolic (congestive) heart failure; I31.3 Pericardial effusion (noninflammatory); N17.9 Acute kidney failure, unspecified; Z68.41 Body mass index [BMI] 40.0-44.9, adult; N39.0 Urinary tract infection, site not specified; I13.0 Hypertensive heart and chronic kidney disease with heart failure and stage 1 through stage 4 chronic kidney disease, or unspecified chronic kidney disease; I25.10 Atherosclerotic heart disease of native coronary artery without angina pectoris; Z95.5 Presence of coronary angioplasty implant and graft; E66.01 Morbid (severe) obesity due to excess calories; Z79.4 Long term (current) use of insulin; R60.0 Localized edema; E83.52 Hypercalcemia; E11.22 Type 2 diabetes mellitus with diabetic chronic kidney disease; N18.9 Chronic kidney disease, unspecified
CPT/HCPCS: 36140; 36415; 71045; 77002; 80048; 80053; 80061; 81001; 82550; 82553; 82948; 83036; 83735; 83880; 84439; 84443; 84484; 85025; 85347; 85610; 85730; 87086; 92920; 93005; 93306; 93458; 99284; C1769; C9600; J0360; J1644; J1940; J1956; J2001; J2250; J2405; J7030; J7050; Q9967

== ENCOUNTER 2020-02-21 01:31 | Emergency (ER) | payer SELFPAY ==
[~2020-02-21] VITALS: Ht 142.2 cm; Wt 81.6 kg
[~2020-02-21 01:31] MED LIST changes: +COREG12.5 MG PO; +Calcium Carbonate PO; +LASIX20 MG PO; +NORVASC10 MG PO; +POTASSIUM CHLO10 ME1 PO
[2020-02-21] MEDS ORDERED: AMLODIPINE BESYLATE 10 MG TAB PO ONE (01:45)
[2020-02-21] MEDS ORDERED: FUROSEMIDE INJ 10 MG/ML 4 ML VIAL IV ONE (01:45)
[2020-02-21] MEDS ORDERED: CARVEDILOL 12.5 MG TAB PO ONE (01:45)
[2020-02-21 01:55] LABS: BASOPHILS # (AUTO) 0.1 (0.0-0.1); BASOPHILS % 0.4 % (0.0-1.0); EOSINOPHILS # (AUTO) 0.2 (0.0-0.4); HEMATOCRIT 35.6 % (34.2-44.1); LYMPHOCYTES # (AUTO) 1.5 (1.0-3.2); LYMPHOCYTES % 12.9 % (18.0-39.1); MEAN CORPUSCULAR HEMOGLOBIN 26.7 pg (28-32); MEAN CORPUSCULAR HGB CONC 30.9 g/dL (31-35); MEAN CORPUSCULAR VOLUME 86.4 fL (81-99); MONOCYTES # (AUTO) 0.6 (0.2-0.8); MONOCYTES % 5.6 % (4.4-11.3); NEUTROPHILS # (AUTO) 8.9 (2.1-6.9); NEUTROPHILS % 78.7 % (38.7-80.0); PLATELET COUNT 273 x10e3/uL (140-360); RED BLOOD COUNT 4.12 x10e6/uL (3.6-5.1); RED CELL DISTRIBUTION WIDTH 14.1 % (11.7-14.4)
--- NOTE | 2020-02-21 02:00 | Emergency Department Note ---
History of Present Illnes History of Present Illness Chief Complaint: Hypertension History of Present Illness This is a 64 year old female Chief Complaint Comment 64 Y/O FEMALE PT AAOX3 PRESENTS TO THE ER VIA EMS FROM HOME C/O DIZZINESS AND BLURRED VISION WITH NAUSEA ONSET AROUND 2230 THIS EVENING; PT STATES SHE HAS NOT TAKEN HER BP MEDICATION IN THE PAST 7-8 DAYS D/T RUNNING OUT AND NOT HAVING INSURANCE; PER EMS, BP IN ROUTE WAS 220/110. 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 Mode: [employer] Support Associate Required: No Onset (how long ago): hour(s) (3) Location: Head Quality: Dizzy Radiation: Reports non-radiation Severity: mild Onset quality: unable to specify Duration (how long): hour(s) (3) Timing of current episode: unable to specify Progression: partially resolved Chronicity: new Context: Denies recent illness, Denies recent surgery Relieving factors: none Exacerbating factors: none Associated symptoms: Reports denies other symptoms Treatments prior to arrival: none Past Medical/Family History Physician Review I have reviewed the patient's past medical and family history. Any updates have been documented here. Past Medical History Recent Fever: No Clinical Suspicion of Infectio: No New/Unexplained Change in Ment: No Past Medical History: Hypertension, Diabetes, Asthma, CAD Other Medical History: SCABIES Past Surgical History: T&A, PCI Other Last Tetanus: UTD Review of Systems Review of Systems Constitutional: Reports no symptoms EENTM: Reports no symptoms Cardiovascular: Reports no symptoms Respiratory: Reports no symptoms Gastrointestinal: Reports no symptoms Genitourinary: Reports no symptoms Musculoskeletal: Reports no symptoms Integumentary: Reports no symptoms Neurological: Reports other (Dizzy); Denies headache Psychological: Reports no symptoms Endocrine: Reports no symptoms Hematological/Lymphatic: Reports no symptoms Physical Exam Related Data Allergies: Coded Allergies: Penicillins (Verified Allergy, Mild, RASH, 11/02/17) Triage Vital Signs Vital Signs Date Time Temp Pulse Resp B/P (MAP) Pulse Ox O2 Delivery O2 Flow Rate FiO2 02/21/20 01:31 98.7 104 24 265/111 94 Room Air Vital signs reviewed: Yes Physical Exam CONSTITUTIONAL Constitutional: Present well-developed, Present well-nourished HENT HENT: Present normocephalic, Present atraumatic, Present oropharynx clear/moist, Present nose normal HENT L/R: Present left ext ear normal, Present right ext ear normal EYES Eyes: Reports PERRL, Reports conjunctivae normal NECK Neck: Present ROM normal PULMONARY Pulmonary: Present effort normal, Present breath sounds normal CARDIOVASCULAR Cardiovascular: Present regular rhythm, Present heart sounds normal, Present capillary refill normal, Present normal rate GASTROINTESTINAL Abdominal: Present soft, Present nontender, Present bowel sounds normal GENITOURINARY Genitourinary: Present exam deferred SKIN Skin: Present warm, Present dry MUSCULOSKELETAL Musculoskeletal: Present ROM normal NEUROLOGICAL Neurological: Present alert, Present oriented x 3, Present no gross motor or sensory deficits; Absent cranial nerve deficit, Absent weakness PSYCHOLOGICAL Psychological: Present mood/affect normal, Present judgement normal Assessment & Plan Medical Decision Making MDM 64-year-old female with past medical history of diabetes and hypertension presents to emergency department for hypertension and mild dizziness. She states she has been out of her medications for the last week and she has lost insurance. She denies other symptoms and otherwise feels at her baseline health. Cranial nerves II through XII are intact, no focal neurologic deficits. No signs of hypertensive emergency. She is given her home dose of antihypertensives. Will prescribe her her home dose of antihypertensives and instructed her to follow up with her primary care doctor. Patient is appropriate for discharge. Initial BP 230-260 systolic and after antihypertensives SBP now <200. Reassessment Reassessment time: 02:49 Reassessment Well appearing, NAD Assessment & Plan Final Impression: (1) Hypertension Depart Disposition: HOME, SELF-CARE Last Vital Signs Date Time Temp Pulse Resp B/P (MAP) Pulse Ox O2 Delivery O2 Flow Rate FiO2 02/21/20 01:31 98.7 104 24 265/111 94 Room Air Home Meds Active Scripts Amlodipine Besylate (NORVASC) 10 Mg Tab, 10 MG PO DAILY for 30 Days Prov:SUNDAY OLMOS WINDER OPERATOR 11/06/17 Potassium Chloride (POTASSIUM CHLORIDE) 10 Meq Tab.er.prt, 10 MEQ PO DAILY, #30 TAB Prov:SUNDAY OLMOS WINDER OPERATOR 11/06/17 [Calcium Carbonate] 500 MG TAB No Conflict Check, 500 MG PO BID for 30 Days Prov:SUNDAY OLMOS WINDER OPERATOR 11/06/17 Furosemide (LASIX) 20 Mg Tablet, 20 MG PO DAILY, #30 TAB Prov:SUNDAY OLMOS WINDER OPERATOR 11/06/17 Carvedilol (COREG) 12.5 Mg Tab, 12.5 MG PO BID for 30 Days, TAB Prov:SUNDAY OLMOS WINDER OPERATOR 11/06/17 Reported Medications Albuterol Sulfate (VENTOLIN HFA) 18 Gm Hfa.aer.ad, 2 INH PO Q6HR PRN for WHEEZING 07/14/14 Atorvastatin Calcium* (LIPITOR*) 10 Mg Tablet, 20 MG PO DAILY 07/14/14 Clopidogrel Bisulfate* (PLAVIX) 75 Mg Tablet, 75 MG PO DAILY, #30 TAB 07/14/14 Aspirin (ASPIR 81) 81 Mg Tablet.dr, 81 MG PO DAILY 07/14/14 Insulin Aspart (NOVOLOG) 100 Units/1 Ml Inj, 17 SC TIDWM 07/14/14 Insulin Detemir (LEVEMIR) 100 Unit/1 Ml Vial, 32 SC BID 07/14/14 Metformin Hcl (METFORMIN HCL ER) 500 Mg Tab.er.24h, 1000 MG PO BID 07/10/14 Medications in the ED Amlodipine Besylate 10 mg ONCE ONCE PO ; Start 02/21/20 at 01:45; Stop 02/21/20 at 01:46; Status DC Furosemide 40 mg ONCE ONCE IV ; Start 02/21/20 at 01:45; Stop 02/21/20 at 01:46; Status DC Carvedilol 12.5 mg ONCE ONCE PO ; Start 02/21/20 at 01:45; Stop 02/21/20 at 01:46; Status DC TAMMY ALANIZ MD Feb 21, 2020 02:00
[2020-02-21 02:15] LABS: ALBUMIN 3.9 g/dL (3.5-5.0); ANION GAP 15.1 mmol/L (8-16); CREATININE, SERUM 2.08 mg/dL (0.57-1.11); POTASSIUM 5.1 mmol/L (3.5-5.1)
--- NOTE | 2020-02-21 02:18 | Diagnostic Imaging Report ---
History:Dizziness blurry vision Comparison studies: None Technique: Axial images were obtained from the skull base to the vertex. Coronal and sagittal images reconstructed from the axial data. Dose modulation, iterative reconstruction, and/or weight based adjustment of the mA/kV was utilized to reduce the radiation dose to as low as reasonably achievable. Intravenous contrast: None Findings: Scalp/skull: No abnormalities. Extra-axial spaces: No masses. No fluid collections. Brain sulci: Appropriate for age Ventricles: Normal in size and configuration. No hydrocephalus. Parenchyma: Confluent hypodensities in the supratentorial white matter are small vessel ischemic changes. Chronic CSF-like lacunar insults are centered in the inferolateral thalami. No masses, hemorrhage, acute or chronic cortical vascular insults. Sellar/suprasellar region: No abnormalities. Craniocervical junction: Patent foramen magnum. No Chiari one malformation. Incidental findings: Coarse atherosclerotic calcifications in the carotid siphons and vertebral arteries. Impression: No acute intracranial abnormalities. Chronic findings 1. Moderate supratentorial white matter small vessel ischemic changes. 2. Focal bilateral thalamic lacunar insults Signed by: Dr. Aquilino Platt M.D. on 02/21/2020 2:15 AM
[2020-02-21] MEDS ORDERED: ONDANSETRON HCL INJ 2MG/ML 2ML 2 MG/ML VIAL IV STA (02:27)
[2020-02-21] MEDS ORDERED: ONDANSETRON HCL INJ 2MG/ML 2ML 2 MG/ML VIAL ONE (02:38)
[2020-02-21] MEDS ORDERED: ALBUTEROL SULFATE HFA 8GM INHALATION AEROSOL INH PRN (02:45)
[2020-02-21] MEDS ORDERED: ALBUTEROL SULFATE HFA 8GM INHALATION AEROSOL INH ONE (02:52)
[2020-02-21 02:56] LABS: BILIRUBIN,URINE NEGATIVE (NEGATIVE); CLARITY,URINE SL CLOUDY (CLEAR); COLOR,URINE YELLOW (YELLOW); KETONES,URINE NEGATIVE (NEGATIVE); LEUKOCYTE ESTERASE ,URINE NEGATIVE (NEGATIVE); NITRITE,URINE NEGATIVE (NEGATIVE); PROTEIN,URINE DIPSTICK >=300 (NEGATIVE); URINE UROBILINOGEN 0.2 mg/dL (0.2 - 1)
[2020-02-21 03:05] LABS: BACTERIA,URINE MODERATE /HPF; EPITHELIAL CELLS,URINE FEW /LPF; WBC,URINE (MAN) 0-5 /HPF (0-5)
== END 2020-02-21 06:25 | disposition home or self-care (01) ==
LOC: ER 01:46
DX: I10 Essential (primary) hypertension (principal); R42 Dizziness and giddiness; E11.65 Type 2 diabetes mellitus with hyperglycemia; I25.10 Atherosclerotic heart disease of native coronary artery without angina pectoris; J45.909 Unspecified asthma, uncomplicated
CPT/HCPCS: 36415; 70450; 80053; 81001; 83880; 84484; 85025; 93005; 96374; 96375; 99284; J1940; J2405